=== PATIENT | female | born 1955 | race Caucasian/White ===

== ENCOUNTER 2017-01-29 08:42 | Outpatient (CLI) | payer OTHER ==
[2017-01-29 09:44] LABS: eGFR (African) > 60; eGFR (Non-African) > 60
== END 2017-01-29 08:52 ==
LOC: LAB 08:42
PROVIDERS: ATTEND Family Medicine
DX: I10 Essential (primary) hypertension (principal)
CPT/HCPCS: 36415; 80053; 80061

== ENCOUNTER 2018-01-20 10:22 | Outpatient (CLI) | payer OTHER ==
[2018-01-20 11:06] LABS: eGFR (African) > 60; eGFR (Non-African) > 60
== END 2018-01-20 10:23 ==
LOC: LAB 10:22
PROVIDERS: ATTEND Family Medicine
DX: I10 Essential (primary) hypertension (principal)
CPT/HCPCS: 36415; 80053; 80061

== ENCOUNTER 2018-02-28 08:02 | Outpatient (CLI) | payer OTHER ==
[2018-02-28 09:17] LABS: eGFR (Non-African) > 60
== END 2018-02-28 08:03 ==
LOC: LAB 08:02
PROVIDERS: ATTEND Family Medicine
DX: E78.5 Hyperlipidemia, unspecified (principal); E03.9 Hypothyroidism, unspecified
CPT/HCPCS: 36415; 80053; 80061; 84443

== ENCOUNTER 2018-04-08 09:19 | Outpatient (CLI) | payer OTHER | END 2018-04-08 09:20 | LOC: LAB 09:19 | PROVIDERS: ATTEND Family Medicine | DX: E03.9 Hypothyroidism, unspecified (principal) | CPT/HCPCS: 36415; 84443 ==

== ENCOUNTER 2019-02-08 12:07 | Outpatient (CLI) | payer OTHER ==
[2019-02-08 13:49] LABS: HDL 47 mg/dL (>40); eGFR (Non-African) > 60
== END 2019-02-08 12:09 ==
LOC: LAB 12:07
PROVIDERS: ATTEND Family Medicine
DX: E03.9 Hypothyroidism, unspecified (principal); I10 Essential (primary) hypertension
CPT/HCPCS: 36415; 80053; 80061; 84443

== ENCOUNTER 2019-05-12 08:44 | Outpatient (CLI) | payer MEDICARE, OTHER | END 2019-05-12 08:49 | LOC: LAB 08:44 | PROVIDERS: ATTEND Family Medicine | DX: E03.9 Hypothyroidism, unspecified (principal) | CPT/HCPCS: 36415; 84443 ==